=== PATIENT | female | born 1940 | race Hispanic/Latino ===

== ENCOUNTER 2018-05-15 07:10 | Day surgery (SDC) | payer MEDICARE, BC ==
[2014-10-04 11:12] VITALS: BMI 23.7
[2018-05-15] MEDS ORDERED: Propofol 10 mg/ml Inj (20 ML) ONE (08:58)
[2018-05-15] MEDS ORDERED: AMPicillin 2 GM in Sodium Chloride 0.9% 100 ML IVPB ONE (09:00)
[2018-05-15] MEDS ORDERED: Sodium Chloride 0.9% 1,000 ML IV SCH (09:45)
[2018-05-15 15:07] VITALS: BP 111/65; PULSE 63; RESP 16; TEMP 98.4; O2SAT 99
== END 2018-05-15 10:55 | disposition home or self-care (01) ==
LOC: ENDO 07:10
PROVIDERS: ATTEND Internal Medicine Gastroenterology
DX: K22.5 Diverticulum of esophagus, acquired (principal); K31.819 Angiodysplasia of stomach and duodenum without bleeding; K44.9 Diaphragmatic hernia without obstruction or gangrene; K31.7 Polyp of stomach and duodenum; R13.10 Dysphagia, unspecified
CPT/HCPCS: 43255; 88305; 88312; 88342; J0290; J2001; J2405; J2704; J7030; J7040

== ENCOUNTER 2018-06-08 08:50 | Outpatient (CLI) | payer MEDICARE, BC | END 2018-06-08 08:51 | disposition home or self-care (01) | LOC: RAD 08:50 | DX: R13.12 Dysphagia, oropharyngeal phase (principal) ==